=== PATIENT | male | born 1975 | race Hispanic/Latino ===

== ENCOUNTER 2016-10-27 09:51 | Emergency (ER) | payer OTHER ==
[~2016-10-27] VITALS: Ht 167.6 cm; Wt 88.2 kg
[~2016-10-27 09:51] MED LIST: ADRENACLIC0.15 MG/0. IM; AUGMENTIN875 MG PO; BENADRYL50 MG PO; CITALOPRAM HBR10 MG PO; DESYREL100 MG PO; DIAZEPAM2 MG PO; GABAPENTIN300 MG PO; MEDROL DOSEPAK4 MG PO; MOTRIN800 MG PO; PAROXETINE HCL10 MG PO; PAROXETINE HCL20 MG PO; VITAMIN B-1100 MG PO; ZITHROMAX Z-PA250 MG PO
[2016-10-27 10:57] LABS: HEMATOCRIT 46.1 % (38.0-50.0); MCH 29.4 PG (29.0-34.0); MCV 89.2 FL (86-99); MEAN PLAT.VOLUME 9.8 uM^3 (9.0-12.4); PLATELET COUNT 253 K/uL (156-360); RBC DIS.WIDTH-CV 12.1 % (11.8-14.6); RBC DIS.WIDTH-SD 39.7 % (39-53); RED BLOOD COUNT 5.17 M/uL (4.00-5.50); WHITE BLOOD COUNT 9.1 K/uL (4.1-10.2)
[2016-10-27 11:12] LABS: CHLORIDE 109 mEq/L (99-109); POTASSIUM 4.6 mEq/L (3.7-5.4); SODIUM 142 mEq/L (136-147)
[2016-10-27 11:14] LABS: GLUCOSE 100 mg/dL (70-99)
[2016-10-27 11:15] LABS: ANION GAP 10 MEQ/L (2-14)
[2016-10-27 11:18] LABS: GFR ESTIMATE (CALCULATED) > 59 mL/min/
[2016-10-27 11:19] LABS: UREA NITROGEN (BUN) 12 mg/dL (9-23)
[2016-10-27 11:27] LABS: TROP-I INTERPRETATION NEGATIVE; TROPONIN-I < 0.01 ng/mL (0.0-0.30)
[2016-10-27 11:36] LABS: D-DIMER ELISA < 0.15 mg/L FEU (< 0.57)
[2016-10-27 13:45] VITALS: BP 112/68
== END 2016-10-27 13:50 | disposition home or self-care (01) ==
LOC: EME 09:51
PROVIDERS: Emergency Medicine
DX: G62.9 Polyneuropathy, unspecified (principal); R07.89 Other chest pain; R20.0 Anesthesia of skin
CPT/HCPCS: 70450; 71020; 80048; 84484; 85027; 85379; 93005; 99281; 99285

== ENCOUNTER 2016-10-29 21:27 | Emergency (ER) | payer OTHER ==
[~2016-10-29] VITALS: Ht 167.6 cm; Wt 86.8 kg
[2016-10-29 23:26] LABS: HEMATOCRIT 44.8 % (38.0-50.0); MCH 29.2 PG (29.0-34.0); MCHC 33.3 G/DL (30.0-36.0); MCV 87.8 FL (86-99); MEAN PLAT.VOLUME 9.5 uM^3 (9.0-12.4); PLATELET COUNT 270 K/uL (156-360); RBC DIS.WIDTH-CV 12.3 % (11.8-14.6); RBC DIS.WIDTH-SD 39.9 % (39-53); WHITE BLOOD COUNT 10.4 K/uL (4.1-10.2)
[2016-10-29 23:38] LABS: CHLORIDE 103 mEq/L (99-109); SODIUM 139 mEq/L (136-147)
[2016-10-29 23:44] LABS: GFR ESTIMATE (CALCULATED) > 59 mL/min/
[2016-10-29 23:49] LABS: TROP-I INTERPRETATION NEGATIVE; TROPONIN-I < 0.01 ng/mL (0.0-0.30)
[2016-10-29 23:52] LABS: GLUCOSE 98 mg/dL (70-99)
[2016-10-29 23:54] LABS: ANION GAP 9 MEQ/L (2-14); TOTAL BILIRUBIN 0.3 mg/dL (0.0-1.0)
[2016-10-29 23:56] LABS: ALKALINE PHOSPHATASE 54 IU/L (3-129)
[2016-10-29 23:57] LABS: UREA NITROGEN (BUN) 12 mg/dL (9-23)
[2016-10-29 23:58] LABS: DIRECT BILIRUBIN 0.1 mg/dL (0.0-0.3)
[2016-10-29 23:59] LABS: LIPASE 28 U/L (1.0-51.0)
[2016-10-30 00:02] LABS: POTASSIUM 3.5 mEq/L (3.7-5.4)
[2016-10-30 00:06] LABS: D-DIMER ELISA < 0.15 mg/L FEU (< 0.57); PROTHROMBIN TIME 10.6 (9.2-11.2); PTT 29.9 (25-32)
[2016-10-30 01:57] VITALS: BP 105/64
== END 2016-10-30 01:59 | disposition home or self-care (01) ==
LOC: EME 21:27
DX: R07.89 Other chest pain (principal); R20.0 Anesthesia of skin; R13.10 Dysphagia, unspecified
CPT/HCPCS: 71020; 80048; 80076; 83690; 84484; 85027; 85379; 85610; 85730; 93005; 99281; 99283